=== PATIENT | male | born 1945 | race Caucasian/White ===

== ENCOUNTER 2018-08-04 09:55 | Emergency (ER) | payer MEDICARE, BC ==
[2018-08-04 10:41] LABS: #Eosinphils 0.1 thou/uL (0.0-0.7); #Lymphocytes 1.5 thou/uL (1.20-3.40); #Monocytes 0.9 thou/uL (0.11-0.59); #Neutrophils 5.5 thou/uL (1.40-6.50); %Basophils 0.4 % (0.0-1.0); %Lymphocytes 18.5 % (21.0-51.0); %Monocytes 10.9 % (0.0-10.0); %Neutrophils 69.2 % (42.0-75.0); Hemoglobin 15.5 g/dL (14.0-18.0); Mean Corpuscular HGB CONC 33.3 g/dL (32.0-36.0); Mean Corpuscular Hemoglobin 30.6 pg (27.0-31.0); Mean Platelet Volume 7.4 fL (7.4-10.4); Platelet Count 170 thou/uL (130-400); Red Blood Cell (RBC) Count 5.06 mill/uL (4.70-6.10)
[2018-08-04 11:02] LABS: ALT (SGPT) 33 U/L (8-55); AST (SGOT) 24 U/L (5-34); Alkaline Phosphatase 117 U/L (40-150); Anion Gap 16 mmol/L (10-20); BUN (Urea Nitrogen) 12 mg/dL (8.4-25.7); Calc. Creatinine Clearance 0 mL/min (70-130); Calcium 9.2 mg/dL (7.8-10.44); Carbon Dioxide 19 mmol/L (23-31); Chloride 105 mmol/L (98-107); Estimated GFR-MDRD 69; Globulin 2.8 g/dL (2.4-3.5); Glucose 90 mg/dL (83-110); Lipase 15 U/L (8-78); Potassium 4.1 mmol/L (3.5-5.1); Protein, Total 6.8 g/dL (5.8-8.1); Sodium 136 mmol/L (136-145)
[2018-08-04] MEDS ORDERED: ISOVUE-370 76%-LOCM 1 ML ONE (11:31)
--- NOTE | 2018-08-04 12:59 | CT ---
CT ABDOMEN AD PELVIS WITH IV CONTRAST: Multiple axial tomograms were obtained through the abdomen and pelvis with IV enhancement. Oral cont rast was not administered. INDICATION: Abdominal pain. Constipation. FINDINGS: The lung bases appear clear. Thee is a 3.8 cm cystic lesion in the superior posterior right lobe of the liver under the dome of th e diaphragm. There is another 1.5 cm cystic lesion in the right lobe adjacent to the fissure. Liver otherwise unremarkable. The spleen and pancreas are unremarkable. Adrenal gland is normal. There is mild right hydronephrosis. There is an obstructing calculus in the proximal right ureter me asuring 3-4 mm. There are several nonobstructing calculi in the upper pole collecting structures of the right kidney with largest measuring 3-4 mm. No calculi are seen in the left kidney. The left collecting structures are unremarkable. Urinary bladder is distended and unremarkable appearing. There is prostatic hypertrophy which imping es on the floor of the bladder. Small bowel loops appear normal. Appendix not identified. Colon unremarkable. Aorta normal caliber . No adenopathy. Osseous structures unremarkable. IMPRESSION: 1. A 4 mm obstructing calculus proximal right ureter. 2. Numerous small nonobstructing calculi in the upper collecting structures of the right kidney. 3. Benign-appearing hepatic cysts are noted as described. 4. Prostatic hypertrophy. POS: JUAREZ
== END 2018-08-04 12:25 | disposition home or self-care (01) ==
LOC: ERS 09:55
DX: N13.2 Hydronephrosis with renal and ureteral calculous obstruction (principal); E03.9 Hypothyroidism, unspecified; Z79.899 Other long term (current) drug therapy
CPT/HCPCS: 36415; 74177; 80053; 83690; 85025; 96360; 96361